=== PATIENT | male | born 1995 | race Caucasian/White ===

== ENCOUNTER 2016-04-29 23:26 | Emergency (ER) | payer BC ==
[~2016-04-29] VITALS: Ht 167.6 cm; Wt 66.2 kg
[2016-04-29 23:35] VITALS: TEMP 36.5; Ht 167.6 cm; Wt 66.2 kg
--- NOTE | 2016-04-30 00:14 | EMERGENCY ROOM VISIT NOTE ---
History Report prepared by Jessica: Claudia Landrum Under the Supervision of: Dr. Joby Bledsoe M.D. First contact with patient: 23:27 Chief Complaint: ALCOHOL OVERDOSE Stated Complaint: ALCOHOL OVERDOSE History of Present Illness The patient is a 20 year old male who presents to the Emergency Room via EMS to be evaluated for an episode of alcohol intoxication that occurred this evening. Per EMS, the patient was participating in a bar crawl. He was witnessed by police as he fell down to the ground, he did not strike his head. Police called EMS as the patient was intoxicated. EMS denies that the patient lost consciousness, vomited. The patient denies any other drug use, any assault. Source of History: patient Onset: this evening Position: other (global) Quality: other (intoxication) Timing: other (episode ) Associated Symptoms: No LOC, No vomiting Review of Systems See HPI for pertinent positives & negatives. A total of 10 systems reviewed and were otherwise negative. Past Medical & Surgical Medical Problems: (1) No Known Active Medical Problems Family History No pertinent family history Social History Alcohol Use: occasionally Marital Status: in relationship Occupation Status: student Current/Historical Medications No Active Prescriptions or Reported Meds Allergies Coded Allergies: No Known Allergies (Unverified , 04/30/16) Physical Exam Vital Signs Date Time Temp Pulse Resp B/P Pulse Ox O2 Delivery O2 Flow Rate FiO2 04/30/16 01:07 104 18 148/79 98 04/29/16 23:38 118 04/29/16 23:35 36.5 118 16 156/81 94 Room Air Physical Exam GENERAL: Patient is heavily intoxicated. Smells of alcohol. Well appearing and in no acute distress. HEAD: No evidence of Trauma. AT/NC EYES: Injected conjunctiva. Normal EOM. Pupils equal/reactive. ENT: Mucous membranes moist, no nasal congestion, . NECK: No step-offs, no adenopathy, no meningismus, trachea is midline. LUNGS: No dyspnea. Clear to auscultation and equal bilaterally. No wheeze, no rhonchi. HEART: Regular rate and rhythm. No murmurs, rubs, gallops appreciated. ABDOMEN: Soft, nontender, bowel sounds positive, no masses appreciated, no peritonitis. BACK: No midline tenderness, no CVA tenderness EXTREMITIES: Normal motion all extremities, no cyanosis, no edema. NEUROLOGIC: Intoxicated. Alert, oriented. Redirectable though easily forgets. No acute motor or sensory deficits, no focal weakness, cranial nerves grossly intact. SKIN: No rash, no jaundice, no diaphoresis. Tattoo over the left ribs. Medical Decision & Procedures Laboratory Results 04/30/16 00:07 Test 04/30/16 00:07 Anion Gap 9.0 mmol/L (3-11) Est Creatinine Clear Calc Drug Dose 74.6 ml/min Estimated GFR () 82.1 Estimated GFR (Non- 70.8 BUN/Creatinine Ratio 10.0 (10-20) Calcium Level 8.7 mg/dl (8.5-10.1) Ethyl Alcohol mg/dL 391.0 mg/dl (0-3) Laboratory results as reviewed by me. ED Course 2327: The patient was evaluated in room B11. A complete history and physical exam was performed. 2345: I reevaluated the patient; the patient's girlfriend is now here. 0045: The patient is becoming belligerent. I was able to verbally deescalate him. 0056: Reevaluated the patient. Discussed results and discharge instructions: He verbalized understanding and agreement. The patient is ready for discharge. Medical Decision Differential: Alcohol Intoxication, Drug Intoxication, Electrolyte Abnormality, Trauma, Intracranial Event, Toxicological, Excited Delirium, Serotonin Syndrome , amongst other pathologies entertained. 20 yr old intoxicated male brought in by EMS after being found downtown intoxicated. Patient with no evidence nor history for trauma. Protecting airway and breathing comfortably throughout ED stay. EtOH positive. Girlfriend arrived and patient calm, cooperative and acting much less intoxicated. Girlfriend is sober and feels comfortable monitoring patient at home. Monitored and discharged when awake, alert, oriented and denies any complaints. Impression Primary Impression: Alcohol abuse Additional Impression: Alcohol intoxication Scribe Attestation The scribe's documentation has been prepared under my direction and personally reviewed by me in its entirety. I confirm that the note above accurately reflects all work, treatment, procedures, and medical decision making performed by me. Departure Information Dispostion Home / Self-Care Prescriptions No Active Prescriptions or Reported Meds Forms HOME CARE DOCUMENTATION FORM, IMPORTANT VISIT INFORMATION Patient Instructions Alcohol Intoxication - [facility], My [facility] Problem Qualifiers Additional Impression: Alcohol intoxication Complication of substance-induced condition: uncomplicated Qualified Codes: F10.120 - Alcohol abuse with intoxication, uncomplicated
[2016-04-30 00:41] LABS: CALCIUM 8.7 mg/dl (8.5-10.1); CREATININE 1.4 mg/dl (0.60-1.40); POTASSIUM 3.8 mmol/L (3.5-5.1)
[2016-04-30 01:07] VITALS: BP 148/79; PULSE 104; O2SAT 98
== END 2016-04-30 01:08 | disposition home or self-care (01) ==
LOC: C.EDB 23:29
DX: F10.120 Alcohol abuse with intoxication, uncomplicated (principal)